=== PATIENT | female | born 1995 | race Caucasian/White ===

== ENCOUNTER 2016-03-13 | Emergency (ER) | payer OTHER ==
--- NOTE | 2016-03-13 21:42 | ED ---
ENT HPI - General Chief complaint: ENT Stated complaint: Tonsil Irritation Time Seen by Provider: 03/13/16 21:31 Source: patient, RN notes reviewed Mode of arrival: ambulatory Limitations: no limitations - History of Present Illness Initial comments: Patient is a 21-year-old female presents to the emergency room for evaluation of throat pain. Patient states she noticed a white "stone" in her left tonsil this evening. Patient states that she picked at it with a stick and got it out. Patient states that her tonsil began to bleed slightly. Patient states she did not know what it was, so she decided to come here to be evaluated. Patient denies any throat pain. Patient denies any neck pain. Patient denies any fevers or chills. - Related Data Home Medications Medication Instructions Recorded Confirmed Etonogestrel [Nexplanon ( 68 mg SQ ONCE 03/13/16 03/13/16 control implant)] Allergies Allergy/AdvReac Type Severity Reaction Status Date / Time No Known Allergies Allergy Verified 03/13/16 21:20 Review of Systems ROS Statement: Those systems with pertinent positive or pertinent negative responses have been documented in the HPI. ROS Other: All systems not noted in ROS Statement are negative. Past Medical History Past Medical History: No Reported History Additional Past Medical History / Comment(s): uti, bronchitis History of Any Multi-Drug Resistant Organisms: None Reported Past Surgical History: Section, Orthopedic Surgery Additional Past Surgical History / Comment(s): rt hand"flipped knuckle" from soccer injury had sx to repair. Past Anesthesia/Blood Transfusion Reactions: No Reported Reaction Past Psychological History: No Psychological Hx Reported Smoking Status: Current every day smoker Past Alcohol Use History: Occasional Additional Past Alcohol Use History / Comment(s): started smoking at age 14, smokes 4-5 cig per day. She does smoke marijuana occasionally. She denies any street drug use. She does drink alcohol every other weekend when her son is with his father. Patient lives with her grandmother. There is a dog in the home. She works at [employer]. Past Drug Use History: None Reported - Past Family History Father History Unknown: Yes Mother History Unknown: Yes General Exam - General Exam Comments Initial Comments: Sitting in exam room in no acute distress. Limitations: no limitations General appearance: alert, in no apparent distress Head exam: Present: atraumatic, normocephalic, normal inspection Eye exam: Present: normal appearance ENT exam: Present: normal exam, normal oropharynx, mucous membranes moist, TM's normal bilaterally, normal external ear exam Neck exam: Present: normal inspection Respiratory exam: Present: normal lung sounds bilaterally. Absent: respiratory distress Cardiovascular Exam: Present: regular rate, normal rhythm, normal heart sounds Extremities exam: Present: normal inspection Back exam: Present: normal inspection Neurological exam: Present: alert, oriented X3, CN II-XII intact, normal gait Psychiatric exam: Present: normal affect, normal mood Skin exam: Present: warm, dry, intact, normal color. Absent: rash Course Vital Signs 03/13/16 20:56 Temperature 98.2 F Pulse Rate 78 Respiratory 18 Rate Blood Pressure 129/75 O2 Sat by Pulse 98 Oximetry Medical Decision Making - Medical Decision Making Patient is a 21-year-old female since emergency room for evaluation of possible tonsillith. Patient's tonsils show no concerning findings. No swelling or erythema noted. Patient is not complaining of any other symptoms. Patient denies any current throat pain. Advised patient to gargle with saltwater. Advised patient to return for any worsening symptoms. Patient states she understands everything that was discussed with her. Disposition Clinical Impression: Tonsillith Disposition: HOME SELF-CARE Condition: Good Instructions: Tonsillitis (ED) Additional Instructions: Saltwater gargles. Please follow up with primary care provider in 1-2 days. If any new symptom arises, symptoms worsen or fever develops, return to ER as soon as possible. Referrals: None,Stated [Primary Care Provider] - 1-2 days Time of Disposition: 21:41
== END 2016-03-13 21:54 | disposition home or self-care (01) ==
CPT/HCPCS: 99282

== ENCOUNTER 2017-07-09 22:39 | Emergency (ER) | payer OTHER ==
[2017-07-09 22:48] VITALS: TEMP 98.2
[2017-07-09] MEDS ORDERED: KETOROLAC 30 MG/ML 1 ML VIAL IM STA (23:03)
[2017-07-09 23:39] LABS: Appearance,Urine Clear (Clear); Bilirubin,Urine Negative (Negative); Blood,Urine Negative (Negative); Color,Urine Light Yellow; Glucose,Urine (UA) Negative (Negative); Ketones,Urine Negative (Negative); Leukocyte Esterase,Urine Negative (Negative); Nitrite,Urine Negative (Negative); Protein,Urine Trace (Negative); Specific Gravity,Urine 1.004 (1.001-1.035); Urobilinogen,Urine <2.0 mg/dL (<2.0)
--- NOTE | 2017-07-09 23:42 | ED ---
Upper Extremity HPI - General Chief Complaint: Extremity Injury, Upper Stated Complaint: Flank Pain Time Seen by Provider: 07/09/17 22:50 Source: patient Mode of arrival: ambulatory Limitations: no limitations - History of Present Illness Initial Comments: 22-year-old female patient presents to the emergency department today for complaints of right rib and flank pain that radiates around to her right lower quadrant abdomen. She describes the pain as sharp and stabbing. Patient states this started suddenly approximately 30 minutes ago after she coughed. Patient states that the pain does increase when she takes a deep breath. She denies any previous injury to the ribs. Denies any recent illness, persistent cough, nasal drainage, fever, or chills. Denies any hematuria, dysuria, urinary frequency, urinary urgency. Patient denies history of kidney stones. Denies any chance of , states she uses NuvaRing. Patient denies any headache, neck pain, chest pain, shortness of breath, dizziness, weakness, nausea, vomiting, or difficulties with bowel movements or urination. - Related Data Home Medications Medication Instructions Recorded Confirmed Etonogestrel/Ethinyl Estradiol 1 ring VG Q21D 07/09/17 07/09/17 [Nuvaring Vaginal Ring] Previous Rx's Medication Instructions Recorded Ibuprofen [Motrin] 600 mg PO Q8HR PRN #30 tab 07/10/17 Allergies Allergy/AdvReac Type Severity Reaction Status Date / Time No Known Allergies Allergy Verified 07/09/17 23:15 Review of Systems ROS Statement: Those systems with pertinent positive or pertinent negative responses have been documented in the HPI. ROS Other: All systems not noted in ROS Statement are negative. Past Medical History Past Medical History: No Reported History Additional Past Medical History / Comment(s): uti, bronchitis, kidney infection History of Any Multi-Drug Resistant Organisms: None Reported Past Surgical History: Section, Orthopedic Surgery Additional Past Surgical History / Comment(s): rt hand"flipped knuckle" from soccer injury had sx to repair. Past Anesthesia/Blood Transfusion Reactions: No Reported Reaction Past Psychological History: No Psychological Hx Reported Smoking Status: Current every day smoker Past Alcohol Use History: Occasional Past Drug Use History: None Reported - Past Family History Father History Unknown: Yes Mother History Unknown: Yes General Exam Limitations: no limitations General appearance: alert, in no apparent distress, other (This is a well- developed, well-nourished adult female patient in no acute distress. Vital signs upon presentation are temperature 98.2F, pulse 75, respirations 18, blood pressure 114/85, pulse ox 100% on room air.) Eye exam: Present: normal appearance, PERRL, EOMI. Absent: scleral icterus, conjunctival injection, periorbital swelling ENT exam: Present: normal exam, normal oropharynx, mucous membranes moist Respiratory exam: Present: normal lung sounds bilaterally. Absent: respiratory distress, wheezes, rales, rhonchi, stridor, chest wall tenderness Cardiovascular Exam: Present: regular rate, normal rhythm, normal heart sounds. Absent: systolic murmur, diastolic murmur, rubs, gallop, clicks GI/Abdominal exam: Present: soft, normal bowel sounds. Absent: distended, tenderness, guarding, rebound, rigid Back exam: Present: normal inspection. Absent: CVA tenderness (R), CVA tenderness (L) Neurological exam: Present: alert, oriented X3, CN II-XII intact Psychiatric exam: Present: normal affect, normal mood Skin exam: Present: warm, dry, intact, normal color. Absent: rash Course Vital Signs 07/09/17 22:44 Temperature 98.2 F Pulse Rate 75 Respiratory 18 Rate Blood Pressure 114/85 O2 Sat by Pulse 100 Oximetry Medical Decision Making - Medical Decision Making 22-year-old female patient presented to the emergency department today for evaluation of right rib, flank, and abdominal pain after offing about 30 minutes ago. Physical examination was relatively unremarkable. Abdomen was soft and nontender. Ribs are nontender. Chest x-ray with rib evaluation was normal, no acute fractures or cardiopulmonary process was identified. I did perform urinalysis, there is no blood present to suggest kidney stone. Patient has no history of kidney stones. She was given IM Toradol here in the department, upon reevaluation she is feeling better. I did discuss findings and results with the patient. We discussed possibility of a muscle strain. She is instructed to apply warm moist heat to the area. She is instructed to take Tylenol and her prescription Motrin for pain control. Return parameters discussed in detail. She verbalizes understanding and agrees with this plan. - Lab Data Lab Results 07/09/17 07/09/17 Range/Units 23:23 23:23 Urine Color Light Yellow Urine Appearance Clear (Clear) Urine pH 6.0 (5.0-8.0) Ur Specific [place] 1.004 (1.001-1.035) Urine Protein Trace H (Negative) Urine Glucose (UA) Negative (Negative) Urine Ketones Negative (Negative) Urine Blood Negative (Negative) Urine Nitrite Negative (Negative) Urine Bilirubin Negative (Negative) Urine Urobilinogen <2.0 (<2.0) mg/dL Ur Leukocyte Esterase Negative (Negative) Urine HCG, Qual Not Detected (Not Detectd) - Radiology Data Radiology results: report reviewed, image reviewed One view of the chest and 4 views of the right ribs are obtained. Heart mediastinum are normal. Lungs are clear. There is no sign of pleural effusion or pneumothorax. The right ribs appear intact. Impression by Dr. Connolly shows normal chest with normal right ribs. Disposition Clinical Impression: Pulled muscle Disposition: HOME SELF-CARE Condition: Good Instructions: Muscle Strain (ED) Additional Instructions: Apply warm moist heat to the ribs. Take medication as directed. Follow-up through primary care physician for recheck in 1-2 days. Return here immediately for any new, worsening, or concerning symptoms. Prescriptions: Ibuprofen [Motrin] 600 mg PO Q8HR PRN #30 tab PRN Reason: Pain Is patient prescribed a controlled substance at d/c from ED?: No Referrals: None,Stated [Primary Care Provider] - 1-2 days Time of Disposition: 00:25
--- NOTE | 2017-07-10 00:21 | XR ---
EXAMINATION TYPE: XR ribs RT w pa chest xray DATE OF EXAM: 07/10/2017 COMPARISON: Chest x-ray 07/09/2015 HISTORY: Chest pain. Right rib pain TECHNIQUE: 5 views FINDINGS: Heart and mediastinum are normal. Lungs are clear. There is no sign of pleural effusion or pneumothorax. The right ribs appear intact. IMPRESSION: Normal chest. Normal right ribs.
[2017-07-10 01:20] VITALS: BP 115/59; PULSE 66; RESP 16
== END 2017-07-10 01:20 | disposition home or self-care (01) ==
LOC: EC 22:39
DX: R07.81 Pleurodynia (principal); R10.31 Right lower quadrant pain; F17.200 Nicotine dependence, unspecified, uncomplicated; Z97.5 Presence of (intrauterine) contraceptive device
CPT/HCPCS: 81003; 81025; 71101; 99283; 96372; J1885